=== PATIENT | female | born 1940 | race Caucasian/White ===

== ENCOUNTER 2019-04-15 11:30 | Inpatient (IN) | payer MEDICARE, BC ==
[~2019-04-15] VITALS: Ht 165.1 cm; Wt 93.2 kg
--- NOTE | 2019-04-15 02:30 | NUR ---
PATIENTS TEMPERATURE STILL ELEVATE AT 102, PROVIDED PATIENT WITH ICE PACKS TO COOL DOWN. TYLENOL WAS ALREADY ADMINISTERED, WILL RECHECK TEMPERATURE AND CLOSELY MONITOR. Addendum: 04/16/19 at 0543 by Conor Baxter RN NOTE WAS TAKEN AT 2030 NOT 3003
--- OUTSIDE RECORDS SUMMARY | 2019-04-15 11:34 | XMS REPORT | Clinical Summary ---
Author Author [facility]SHLI [facility] Address Unknown Phone Unavailable Care Team Providers Care Home Service Consultant Name Role Phone Jackson Mccarthy PCP Allergies Comments Active Allergy Reactions Severity Noted Date Meperidine Itching, Rash Low 04/14/2018 Digitalis Glycosides Itching, Rash Low 05/21/2018 Phenobarbital Itching, Rash Low 05/21/2018 Medications End Date Status Medication Sig Dispensed Refills Start Date Active calcium carbonate Take 600 mg 0 (OS-RYAN) 600 mg calcium by mouth (1,500 mg) Tab daily. Active cholecalciferol, vitamin Take 50,000 0 D3, 50,000 unit Tab Units by mouth once a week. Active levocetirizine (XYZAL) 5 Take 5 mg by 0 MG tablet mouth every evening. Active gabapentin (NEURONTIN) Take 600 mg 0 600 MG tablet by mouth 2 (two) times daily 600 mg in AM 1200 mg in PM . Active losartan-hydroCHLOROthiaz Take 1 tablet 0 eliceo (HYZAAR) 50-12.5 mg by mouth per tablet daily. Active omeprazole (PRILOSEC) 10 Take 10 mg by 0 MG capsule mouth daily. Active pravastatin (PRAVACHOL) Take 40 mg by 0 40 MG tablet mouth nightly. Active thiamine HCl (VITAMIN B-1 Take by mouth 0 ORAL) daily. Active ascorbate calcium Take by mouth 0 (VITAMIN C ORAL) daily. Active vitamin E, dl,tocopheryl Take by 0 acet, (VITAMIN E, DL, mouth. ACETATE, ORAL) 04/18/2019 Active ferrous sulfate 325 (65 Take 1 tablet 650 tablet 0 FE) MG tablet (325 mg 8 total) by mouth 2 (two) times daily before meals for 325 days. 05/27/2018 Discontinued inFLIXimab (REMICADE) 100 Inject 0 mg injection intravenously once every 6 weeks. 05/27/2018 Discontinued acetaminophen (TYLENOL) Take 500 mg 0 500 MG tablet by mouth every 6 (six) hours as needed for Pain. 06/12/2018 HYDROcodone-acetaminophen Take 1 tablet 60 tablet 0 (NORCO 10-325) 10-325 mg by mouth 8 per tablet every 4 (four) hours as needed for Pain for up to 15 days. Max Daily Amount: 6 tablets Active Problems Problem Noted Date Glenohumeral arthritis, right 05/26/2018 Encounters Care Team Description Date Type Specialty Brennon Starkey Jr., MD ARTHROPLASTY,SHOULDER 05/26/2018 Surgery Mery Weathers, DRE 05/26/2018 Anesthesia Event Brennon Starkey Jr., MD 05/26/2018 Hospital General Internal Medicine - Encounter 05/28/2018 Brennon Starkey Jr., MD 05/21/2018 Hospital Pre-Admission Testing Encounter Brennon Starkey Jr., MD 05/21/2018 Hospital Pre-Admission Testing Encounter after 04/14/2018 Social History Date Tobacco Use Types Packs/Day Years Used Never Smoker Smokeless Tobacco: Never Used Alcohol Use Drinks/Week oz/Week Comments Yes rare Sex Assigned at Date Recorded Not on file Industry Job Start Date Occupation Not on file Not on file Not on file Travel End Travel History Travel Start No recent travel history available. Last Filed Vital Signs Time Taken Vital Sign Reading 05/28/2018 5:35 PM CDT Blood Pressure 140/64 05/28/2018 5:35 PM CDT Pulse 85 05/28/2018 5:35 PM CDT Temperature 36.9 C (98.4 F) 05/28/2018 5:35 PM CDT Respiratory Rate 18 05/28/2018 5:35 PM CDT Oxygen Saturation 96% - Inhaled Oxygen - Concentration 05/26/2018 5:55 PM CDT Weight 87.5 kg (193 lb) 05/26/2018 5:55 PM CDT Height 167.6 cm (5' 6") 05/26/2018 5:55 PM CDT Body Mass Index 31.15 Plan of Treatment Not on file Implants Device Identifier Shelf Expiration Date Model / Serial / Lot Implanted Type Area Manufactur er 07/10/2019 6194-1-001 / / [id number] [id number] Bone Smplx Hv 6194-1-001 - Cement/Richard Right: Shoulder TATY:ST [id number] ler/Adhesi PAUL Implanted: Qty: 1 on 05/26/2018 by Brennon Evans Jr., MD 06/09/2021 AR-9106-02 / / [id number] Arthrex [employer] [place] Glenoid Joints Right: Shoulder ARTHREX Implanted: Qty: 1 on 05/26/2018 by Brennon Starkey Jr., MD 02/07/2023 AR-[id number] / / [id number] [employer] [place] Humeral Stem Joints Right: Shoulder ARTHREX 10mm Implanted: Qty: 1 on 05/26/2018 by Brennon Starkey Jr., MD 09/09/2022 [id number] / / [id number] Head Hum 48 Mm X 19 Mm [id number]-[id number] Joints Right: Shoulder ARTHREX - [id number] Implanted: Qty: 1 on 05/26/2018 by Brennon Starkey Jr., MD Procedures Comments Procedure Name Priority Date/Time Associated Diagnosis TRANSFUSION SERVICE 05/30/2018 REPORT - SCAN 5:50 PM CDT PREPARE LEUKO-REDUCED RBC Routine 05/29/2018 11:54 PM CDT TRANSFUSION SERVICE 05/29/2018 REPORT - SCAN 5:51 PM CDT RHYTHM STRIP - SCAN 05/29/2018 1:30 PM CDT TRANSFUSE LEUKO-REDUCED Routine 05/28/2018 RED BLOOD CELLS 6:13 PM CDT TRANSFUSE LEUKO-REDUCED Routine 05/28/2018 RED BLOOD CELLS 2:02 PM CDT BASIC METABOLIC PANEL (7) STAT 05/28/2018 3:46 AM CDT HEMOGLOBIN AND HEMATOCRIT STAT 05/28/2018 3:46 AM CDT BASIC METABOLIC PANEL (7) STAT 05/27/2018 9:27 AM CDT HEMOGLOBIN AND HEMATOCRIT STAT 05/27/2018 9:27 AM CDT XR SHOULDER RIGHT Routine 05/26/2018 COMPLETE MIN 2 VWS 1:27 PM CDT HGB/HCT (H&H) - STAT LAB STAT 05/26/2018 10:32 AM CDT GLUCOSE-STAT LAB STAT 05/26/2018 10:32 AM CDT POTASSIUM-STAT LAB STAT 05/26/2018 10:32 AM CDT SODIUM NA-STAT LAB STAT 05/26/2018 10:32 AM CDT BLOOD GAS, ARTERIAL STAT 05/26/2018 10:32 AM CDT CALCIUM, IONIZED STAT 05/26/2018 10:32 AM CDT RRL CRITICAL LABS STAT 05/26/2018 (ABG,NA,K,H&H,GLUCOSE) 10:32 AM CDT TISSUE EXAM AP Routine 05/26/2018 10:06 AM CDT ANESTHESIA PERIPHERAL Routine 05/26/2018 BLOCK 9:02 AM CDT ARTHROPLASTY,SHOULDER 05/26/2018 Localized osteoarthritis 8:00 AM CDT of right shoulder Special Needs (GENERAL ANESTHESIA WITH ONE SHOT BLOCK, ARTHREX, APEX TOTAL SHOULDER SYSTEM) TRANSFUSION SERVICE 05/22/2018 REPORT - SCAN 5:54 PM CDT TYPE AND SCREEN, Routine 05/21/2018 AUTOMATED 10:07 AM CDT after 04/14/2018 Results * TRANSFUSION SERVICE REPORT - SCAN (05/30/2018 5:50 PM CDT) Only the most recent of 3 results within the time period is included. Narrative Performed At * Prepare Leuko-Red RBC (05/29/2018 11:54 PM CDT) CROSSMATCH COMPATIBLE SAFETRACE TX Unit ABO A Pos SAFETRACE TX UNIT NUMBER [id number] SAFETRACE TX Status TRANSFUSED SAFETRACE TX Blood Bank Product RED BLOOD CELLS SAFETRACE TX PRODUCT CODE [id number] SAFETRACE TX CROSSMATCH COMPATIBLE SAFETRACE TX Unit ABO A Pos SAFETRACE TX UNIT NUMBER [id number] SAFETRACE TX Status TRANSFUSED SAFETRACE TX Blood Bank Product RED BLOOD CELLS SAFETRACE TX PRODUCT CODE [id number] SAFETRACE TX Specimen Other Performing Organization Address City/[facility]/Zipcode Phone Number [place] * RHYTHM STRIP - SCAN (05/29/2018 1:30 PM CDT) Narrative Performed At * Transfuse Leuko-Red RBC (05/28/2018 6:13 PM CDT) Only the most recent of 3 results within the time period is included. * Hemoglobin and hematocrit (05/28/2018 3:46 AM CDT) Only the most recent of 2 results within the time period is included. Hemoglobin 7.2 (L) 11.2 - 15.7 GM/DL [facility] Hematocrit 22.7 (L) 34.1 - 44.9 % [facility] Specimen Blood Performing Organization Address City/[facility]/Zipcode Phone Number [place] [phone] [place] [address] [facility] * Basic Metabolic Panel (05/28/2018 3:46 AM CDT) Only the most recent of 2 results within the time period is included. Sodium 135 (L) 136 - 145 meq/L [facility] Potassium 4.3 3.5 - 5.1 meq/L [facility] Chloride 105 98 - 107 meq/L [facility] CO2 20 (L) 22 - 29 meq/L [facility] BUN 30 (H) 7 - 21 mg/dL [facility] Creatinine 1.31 (H) 0.57 - 1.25 mg/dL [facility] Glucose 130 (H) 70 - 105 mg/dL [facility] Calcium 8.8 8.4 - 10.2 mg/dL [facility] EGFR 39Comment: ESTIMATED GFR IS mL/min/1.73 sq m [facility] NOT ACCURATE CREATININE [facility] CLEARANCE IN PREDICTING GLOMERULAR FILTRATION RATE. ESTIMATED GFR IS NOT APPLICABLE FOR DIALYSIS PATIENTS. Specimen Blood Performing Organization Address City/[facility]/Zipcode Phone Number [facility] [address] [place] [address] [facility] * XR shoulder complete 2 views min right (05/26/2018 1:27 PM CDT) Specimen Narrative Performed At FINAL REPORT RIS TECHNIQUE: Three views of the right shoulder dated 05/26/2018 HISTORY: Status post right shoulder arthroplasty COMPARISON: None. IMPRESSION: Patient is status post total right shoulder arthroplasty with full surgical fluid and air seen in the soft tissues. No fracture or dislocation. Bones are osteopenic.. Minimal atelectasis is seen in the right lung base. Signed: Ervin Tijerina MD Report Verified Date/Time:05/26/2018 13:59:31 Reading Location: [facility] Radiology Reading Room Procedure Note Interface, External Ris In - 05/26/2018 2:01 PM CDT FINAL REPORT TECHNIQUE: Three views of the right shoulder dated 05/26/2018 HISTORY: Status post right shoulder arthroplasty COMPARISON: None. IMPRESSION: Patient is status post total right shoulder arthroplasty with full surgical fluid and air seen in the soft tissues. No fracture or dislocation. Bones are osteopenic.. Minimal atelectasis is seen in the right lung base. Signed: Ervin Tijerina MD Report Verified Date/Time: 05/26/2018 13:59:31 Reading Location: [facility] Radiology Reading Room Performing Organization Address City/State/Zipcode Phone Number [facility] * Potassium-Stat Lab (05/26/2018 10:32 AM CDT) Potassium 4.0 3.6 - 5.5 meq/L [facility] Specimen Blood, Arterial Narrative Performed At FiO2: 70%, Temp: 35.6C [facility] FiO2: 70%, Temp: 35.6C [facility] FiO2: 70%, Temp: 35.6C FiO2: 70%, Temp: 35.6C FiO2: 70%, Temp: 35.6C Performing Organization Address [facility] Phone Number [address] * Sodium Na-Stat Lab (05/26/2018 10:32 AM CDT) Sodium 136 135 - 148 meq/L [facility] Specimen Blood, Arterial Narrative Performed At FiO2: 70%, Temp: 35.6C [facility] FiO2: 70%, Temp: 35.6C [facility] FiO2: 70%, Temp: 35.6C FiO2: 70%, Temp: 35.6C FiO2: 70%, Temp: 35.6C Performing Organization Address [facility] Number [address] * Glucose-Stat Lab (05/26/2018 10:32 AM CDT) Glucose 128 (H) 70 - 110 mg/dL [facility] Specimen Blood, Arterial Narrative Performed At FiO2: 70%, Temp: 35.6C [facility] FiO2: 70%, Temp: 35.6C [facility] FiO2: 70%, Temp: 35.6C FiO2: 70%, Temp: 35.6C FiO2: 70%, Temp: 35.6C Performing Organization Address [facility] Phone Number [address] * HGB/HCT (H&H)-Stat Lab (05/26/2018 10:32 AM CDT) Hemoglobin 9.7 (L) 12.0 - 15.0 g/dL [facility] Hematocrit 29.0 (L) 36.0 - 45.0 % [facility] Specimen Blood, Arterial Narrative Performed At FiO2: 70%, Temp: 35.6C [facility] FiO2: 70%, Temp: 35.6C [facility] FiO2: 70%, Temp: 35.6C FiO2: 70%, Temp: 35.6C FiO2: 70%, Temp: 35.6C Performing Organization Address [facility] Phone Number [address] * Calcium, Ionized (05/26/2018 10:32 AM CDT) Calcium, Ion 1.06 (L) 1.12 - 1.27 mmol/L [facility] pH, Blood 7.37 [facility] Specimen Blood Narrative Performed At FiO2: 70%, Temp: 35.6C [facility] Performing Organization Address [facility] Phone Number [address] * Blood gas, arterial (05/26/2018 10:32 AM CDT) pH, Arterial 7.37 7.35 - 7.45 [facility] pCO2, Arterial 41 35 - 45 mmHg [facility] pO2, Arterial 296 (H) 80 - 90 mmHg [facility] O2 Sat, Arterial 99.7 (H) 96.0 - 97.0 % [facility] HCO3, Arterial 23 21 - 29 mmol/L [facility] Base Excess, Arterial -2.3 (L) -2.0 - 3.0 mmol/L [facility] Patient Temperature 37.0 C [facility] FIO2 21.0 % [facility] Specimen Blood, Arterial Narrative Performed At FiO2: 70%, Temp: 35.6C [facility] FiO2: 70%, Temp: 35.6C [facility] FiO2: 70%, Temp: 35.6C FiO2: 70%, Temp: 35.6C FiO2: 70%, Temp: 35.6C Performing Organization Address [facility]/Zipcode Phone Number [facility] [address] [place], [place] [phone] [facility] * Tissue Exam (05/26/2018 10:06 AM CDT) Case Report Surgical Pathology [facility] Report [facility] Case: [id number] Authorizing Provider:Brennon Starkey MD Collected: 05/26/2018 1006 Ordering Location: [facility] PERIOPERATIVE Received: 05/26/2018 1259 SERVICES Pathologist: Cristo Lawler MD Specimen:Humeral head, right shoulder DIAGNOSIS BONE, RIGHT SHOULDER, [facility] ARTHROPLASTY: [facility] -OSTEOARTHRITIS Signing Pathologist Direct Phone Line: [phone] CPT Code(s) 19287 [facility] [address] [facility] CLINICAL HISTORY Localized osteoarthritis right [facility] shoulder [facility] SPECIMEN SOURCE Right humeral head [facility] GROSS DESCRIPTION Received fresh labeled [facility] "humeral head, right shoulder" [facility] is a a 4.5 x 4.0 x 0.5 cm humeral head. The articular surface is joyner-white to yellow and displays focal areas of pitting and eburnation with obliteration of the demarcation between cortical and cancellous bone in these areas on cross section. No soft tissue is identified. Waist Pleater sections are submitted in cassettes [id number] for decalcification. DB/pl MICROSCOPIC DESCRIPTION The sections show [facility] reduplication of the tidemark [facility] with eburnation and osteophyte formation. Specimen Tissue - Humeral head, right shoulder Performing Organization Address City/[facility]/Zipcode Phone Number [facility] [address] [place] [address] [facility] * ANESTHESIA PERIPHERAL BLOCK (05/26/2018 9:02 AM CDT) Narrative Performed At Maxine Serra CRNA 05/26/20189:02 AM Peripheral Block Patient location during procedure: pre-op Start time: 05/26/2018 7:14 AM End time: 05/26/2018 7:25 AM Reason for block: procedure for pain, at surgeon's request and post-op pain management Staffing Anesthesiologist: ABELINO WARE Resident/POLL WATCHER: EDD ARCHULETA Performed by: resident/POLL WATCHER Preanesthetic Checklist Completed: patient identified, site marked, surgical consent, pre-op evaluation, timeout performed, IV checked, risks and benefits discussed and monitors and equipment checked Peripheral Block Patient position: supine (bump under right shoulder) Prep: ChloraPrep Patient monitoring: heart rate, logistics research engineer and continuous pulse ox Block type: Interscalene Laterality: right Injection technique: single-shot Procedures: ultrasound guided and landmark technique Local infiltration: ropivicaine Infiltration strength: 0.35 % Dose: 15 mL Needle Needle type: Pajunk. Needle gauge: 21 G Needle length: 100 mm Assessment Injection assessment: negative aspiration for heme, no paresthesia on injection, incremental injection and local visualized surrounding nerve on ultrasound Paresthesia pain: none Heart rate change: no Slow fractionated injection: yes Additional Notes Time out performed and procedural site identified and marked. Neural structures were identified with ultrasound. After injection of topical local anesthetic, Pajunk needle advanced and positioned under ultrasound guidance. After negative aspiration, local anesthetic visualized surrounding nerve on ultrasound. Catheter was advanced without complications. Catheter taped and secured to skin. No acute complications. Patient tolerated well - sedated but cooperative. No pain on injection or throughout procedure. Dr Ware present throughout. Edd Archuleta Anesthesiology - PGY4 [facility] Procedure Note Maxine Serra CRNA - 05/26/2018 7:29 AM CDT Peripheral Block Patient location during procedure: pre-op Start time: 05/26/2018 7:14 AM End time: 05/26/2018 7:25 AM Reason for block: procedure for pain, at surgeon's request and post-op pain management Staffing Anesthesiologist: ABELINO WARE Resident/POLL WATCHER: EDD ARCHULETA Performed by: resident/POLL WATCHER Preanesthetic Checklist Completed: patient identified, site marked, surgical consent, pre-op evaluation, timeout performed, IV checked, risks and benefits discussed and monitors and equipment checked Peripheral Block Patient position: supine (bump under right shoulder) Prep: ChloraPrep Patient monitoring: heart rate, logistics research engineer and continuous pulse ox Block type: Interscalene Laterality: right Injection technique: single-shot Procedures: ultrasound guided and landmark technique Local infiltration: ropivicaine Infiltration strength: 0.35 % Dose: 15 mL Needle Needle type: Pajunk. Needle gauge: 21 G Needle length: 100 mm Assessment Injection assessment: negative aspiration for heme, no paresthesia on injection, incremental injection and local visualized surrounding nerve on ultrasound Paresthesia pain: none Heart rate change: no Slow fractionated injection: yes Additional Notes Time out performed and procedural site identified and marked. Neural structures were identified with ultrasound. After injection of topical local anesthetic, Pajunk needle advanced and positioned under ultrasound guidance. After negative aspiration, local anesthetic visualized surrounding nerve on ultrasound. Catheter was advanced without complications. Catheter taped and secured to skin. No acute complications. Patient tolerated well - sedated but cooperative. No pain on injection or throughout procedure. Dr Ware present throughout. Edd Archuleta Anesthesiology - PGY4 [facility] * Type and screen, automated (05/21/2018 10:07 AM CDT) ABO/RH AUTOMATED (BEAKER) A POSITIVE [facility] Ab Scrn NEGATIVE [facility] Specimen Blood Performing Organization Address City/State/Zipcode Phone Number [facility] [address] [place] [address] MEDICAL DIANA after 04/14/2018 Insurance Payer Benefit Subscriber ID Type Phone Address Plan / Group MEDICARE MEDICARE A xxxxxxxxxx Medicare B BLUE CROSS/BLUE SHIELD BCBS xxxxxxxxxxxxxxx PPO [phone] [address] [place] [address] [place] Advance Directives For more information, please contact: [facility] [address] [place], [place] [phone] Date Inactivated Comments Code Status Date Activated 05/28/2018 8:59 PM Full Code 05/26/2018 5:50 PM This code status was determined by: Patient 05/26/2018 5:49 PM Full Code 05/26/2018 5:02 AM This code status was determined by: Patient
--- OUTSIDE RECORDS SUMMARY | 2019-04-15 11:35 | XMS REPORT ---
Author Author [facility] Address Unknown Phone Unavailable Care Team Providers Care Radar Tester Name Role Phone JANEE EWING Unavailable Unavailable Problems This patient has no known problems. Allergies, Adverse Reactions, Alerts This patient has no known allergies or adverse reactions. Medications This patient has no known medications. Results Test Description Test Time Test Comments Text Results Atomic Results Result Comments TISSUE EXAM 2018-06-05 10:50:00 Surgical Pathology Report Case: [id number] Authorizing Provider: Brennon Ewing MD Collected: 05/26/2018 1006 Ord ering Location: [facility] PERIOPERATIVE Received: 05/26/2018 1259 SERVICES Pathologist: Cristo Lawler MD Specimen: Humeral head, right shoulder BONE, RIGHT SHOULDER, ARTHROPLASTY: -OSTEOARTHRITIS Signing Pathologist Direct Phone Line: [phone] signed by Cristo Lawler MD on 06/05/2018 at 10:50 [id number] osteoarthritis right shoulderRight humeral headReceived fresh labeled "humeral head, right shoulder" is a a 4.5 x 4.0 x 0.5 cm humeral head. The articular surface is joyner-white to yellow and displays focal areas of pitting and eburnation with obliteration of the demarcation between cortical and cancellous bone in these areas on cross section. No soft tissue is identified. Hand Bander sections are submitted in cassettes A1-A2 for decalcification. DB/pl The sections show reduplication of the tidemark with eburnation and osteophyte formation. BASIC METABOLIC PANEL 2018-05-28 04:52:00 SODIUM (BEAKER) (test xqcl=065) 135 meq/L 136-145 POTASSIUM (BEAKER) (test xudi=598) 4.3 meq/L 3.5-5.1 CHLORIDE (BEAKER) (test jgpy=990) 105 meq/L 98-107 CO2 (BEAKER) (test vxhc=321) 20 meq/L 22-29 BLOOD UREA NITROGEN (BEAKER) (test ncem=151) 30 mg/dL 7-21 CREATININE (BEAKER) (test sijt=895) 1.31 mg/dL 0.57-1.25 GLUCOSE RANDOM (BEAKER) (test ehtf=801) 130 mg/dL 70-105 CALCIUM (BEAKER) (test nliy=458) 8.8 mg/dL 8.4-10.2 EGFR (BEAKER) (test moke=6546) 39 mL/min/1.73 sq m ESTIMATED GFR IS NOT ACCURATE CREATININE CLEARANCE IN PREDICTING GLOMERULAR FILTRATION RATE. ESTIMATED GFR IS NOT APPLICABLE FOR DIALYSIS PATIENTS. HEMOGLOBIN AND [id number] 04:30:00* Test Item Value Reference Range Comments HEMOGLOBIN (BEAKER) (test xfyb=517) 7.2 GM/DL 11.2-15.7 HEMATOCRIT (BEAKER) (test udea=975) 22.7 % 34.1-44.9 BASIC METABOLIC [id number] 10:00:00* Test Item Value Reference Range Comments SODIUM (BEAKER) (test mcdj=569) 135 meq/L 136-145 POTASSIUM (BEAKER) (test zzlf=253) 4.5 meq/L 3.5-5.1 CHLORIDE (BEAKER) (test rqwf=772) 104 meq/L 98-107 CO2 (BEAKER) (test knew=923) 20 meq/L 22-29 BLOOD UREA NITROGEN (BEAKER) (test szko=900) 28 mg/dL 7-21 CREATININE (BEAKER) (test upgs=100) 1.55 mg/dL 0.57-1.25 GLUCOSE RANDOM (BEAKER) (test oiyt=186) 129 mg/dL 70-105 CALCIUM (BEAKER) (test rghh=660) 8.8 mg/dL 8.4-10.2 EGFR (BEAKER) (test wuuw=1911) 32 mL/min/1.73 sq m ESTIMATED GFR IS NOT ACCURATE CREATININE CLEARANCE IN PREDICTING GLOMERULAR FILTRATION RATE. ESTIMATED GFR IS NOT APPLICABLE FOR DIALYSIS PATIENTS. HEMOGLOBIN AND [id number] 09:35:00* Test Item Value Reference Range Comments HEMOGLOBIN (BEAKER) (test ylqa=732) 8.3 GM/DL 11.2-15.7 HEMATOCRIT (BEAKER) (test ogax=201) 26.3 % 34.1-44.9 RAD, SHOULDER, COMPLETE (MIN 2 VIEWS), [id number] 13:59:00True AP of joint. 15 degrees off center towards midline to get maximum joint space view.Reason for exam:->s/p right total shoulder arthroplastyFINAL REPORT TECHNIQUE: Three views of the right shoulder dated 05/26/2018 HISTORY: Status post right shoulder arthroplasty COMPARISON: None. IMPRESSION:Patient is status post total right shoulder arthroplasty with full surgical fluid and air seen in the soft tissues. No fracture or dislocation. Bones are osteopenic.. Minimal atelectasis is seen in the right lung base. Signed: Dea Michael MDReport Verified Date/Time: 05/26/2018 13:59:31 Reading Location: [facility] Radiology Reading Room D GAS, [id number] 10:51:00* Test Item Value Reference Range Comments PH ARTERIAL (BEAKER) (test acvd=711) 7.37 7.35-7.45 PCO2 ARTERIAL (BEAKER) (test arjq=208) 41 mmHg 35-45 PO2 ARTERIAL (BEAKER) (test meev=293) 296 mmHg 80-90 O2 SATURATION ARTERIAL (BEAKER) (test uvky=297) 99.7 % 96.0-97.0 HCO3 ARTERIAL (BEAKER) (test ihvn=390) 23 mmol/L 21-29 BASE EXCESS ARTERIAL (BEAKER) (test usuw=680) -2.3 mmol/L -2.0-3.0 PATIENT TEMPERATURE (BEAKER) (test bemy=6159) 37.0 C FIO2 (BEAKER) (test icvz=1822) 21.0 % FiO2: 70%, Temp: 35.6CFiO2: 70%, Temp: 35.6CFiO2: 70%, Temp: 35.6CFiO2: 70%, Tem p: 35.6CFiO2: 70%, Temp: 35.6CGLUCOSE-STAT [id number] 10:51:00* Test Item Value Reference Range Comments GLUCOSE RANDOM (BEAKER) (test qkhh=526) 128 mg/dL 70-110 FiO2: 70%, Temp: 35.6CFiO2: 70%, Temp: 35.6CFiO2: 70%, Temp: 35.6CFiO2: 70%, Tem p: 35.6CFiO2: 70%, Temp: 35.6CHGB/HCT (H&H) - STAT [id number] 10:51:00* Test Item Value Reference Range Comments HEMOGLOBIN (BEAKER) (test viej=113) 9.7 g/dL 12.0-15.0 HEMATOCRIT (BEAKER) (test xdnq=515) 29.0 % 36.0-45.0 FiO2: 70%, Temp: 35.6CFiO2: 70%, Temp: 35.6CFiO2: 70%, Temp: 35.6CFiO2: 70%, Tem p: 35.6CFiO2: 70%, Temp: 35.6CCALCIUM, [id number] 10:51:00* Test Item Value Reference Range Comments CALCIUM IONIZED (BEAKER) (test nmue=800) 1.06 mmol/L 1.12-1.27 PH, BLOOD (BEAKER) (test ytwi=3120) 7.37 FiO2: 70%, Temp: 35.6CSODIUM NA-STAT [id number] 10:50:00* Test Item Value Reference Range Comments SODIUM (BEAKER) (test dfwq=913) 136 meq/L 135-148 FiO2: 70%, Temp: 35.6CFiO2: 70%, Temp: 35.6CFiO2: 70%, Temp: 35.6CFiO2: 70%, Tem p: 35.6CFiO2: 70%, Temp: 35.6CPOTASSIUM-STAT [id number] 10:50:00* Test Item Value Reference Range Comments POTASSIUM (BEAKER) (test tcer=743) 4.0 meq/L 3.6-5.5 FiO2: 70%, Temp: 35.6CFiO2: 70%, Temp: 35.6CFiO2: 70%, Temp: 35.6CFiO2: 70%, Tem p: 35.6CFiO2: 70%, Temp: 35.6C
[2019-04-15] MEDS ORDERED: ACETAMINOPHEN 325 MG TAB PO ONE (11:45)
[2019-04-15] MEDS ORDERED: ASPIRIN 81 MG CHEW TAB PO ONE (11:45)
[2019-04-15 12:23] LABS: BASOPHILS % 0.1 % (0.0-1.0); EOSINOPHILS % 0.1 % (0.0-6.0); HEMATOCRIT 30.1 % (34.2-44.1); HEMOGLOBIN 9.9 g/dL (12.0-16.0); LYMPHOCYTES # (AUTO) 0.8 (1.0-3.2); LYMPHOCYTES % 5.8 % (18.0-39.1); MEAN CORPUSCULAR HEMOGLOBIN 32.6 pg (28-32); MEAN CORPUSCULAR HGB CONC 32.9 g/dL (31-35); MONOCYTES # (AUTO) 1.9 (0.2-0.8); MONOCYTES % 13.7 % (4.4-11.3); NEUTROPHILS % 78.4 % (38.7-80.0); PLATELET COUNT 191 x10e3/uL (140-360); RED BLOOD COUNT 3.04 x10e6/uL (3.6-5.1); RED CELL DISTRIBUTION WIDTH 13.4 % (11.7-14.4)
[2019-04-15 12:33] LABS: BILIRUBIN,URINE NEGATIVE (NEGATIVE); CLARITY,URINE CLEAR (CLEAR); COLOR,URINE YELLOW (YELLOW); KETONES,URINE NEGATIVE (NEGATIVE); LEUKOCYTE ESTERASE ,URINE MODERATE (NEGATIVE); NITRITE,URINE NEGATIVE (NEGATIVE); PROTEIN,URINE DIPSTICK TRACE (NEGATIVE); URINE UROBILINOGEN 0.2 mg/dL (0.2 - 1)
[2019-04-15 12:37] LABS: INR 0.97; PROTHROMBIN TIME 13.4 seconds (11.9-14.5)
[2019-04-15 12:38] LABS: PARTIAL THROMBOPLASTIN TIME 32.6 seconds (23.8-35.5)
--- NOTE | 2019-04-15 12:42 | Diagnostic Imaging Report ---
EXAMINATION: CHEST 2 VIEWS INDICATION: Shortness of breath, chest tightness. COMPARISON: None FINDINGS: TUBES and LINES: None. LUNGS: Lungs are well inflated. There is no evidence of pneumonia or pulmonary edema. Patchy opacity at the lung bases, likely atelectasis. PLEURA: No pleural effusion or pneumothorax. HEART AND MEDIASTINUM: The cardiomediastinal silhouette is unremarkable. There are atherosclerotic calcifications within the aorta. BONES AND SOFT TISSUES: No acute osseous abnormality. Partially seen cervical spine fixation hardware and right shoulder hemiarthroplasty. UPPER ABDOMEN: No free air under the diaphragm. IMPRESSION: No acute radiographic abnormality. Signed by: Dr. Kenney Stephen MD on 04/15/2019 12:39 PM
[2019-04-15 12:44] LABS: ALBUMIN 3.4 g/dL (3.5-5.0); ALBUMIN/GLOBULIN RATIO 0.9 (0.8-2.0); ANION GAP 13.9 mmol/L (8-16); CALCIUM 9.1 mg/dL (8.4-10.2); CREATININE, SERUM 1.39 mg/dL (0.57-1.11); POTASSIUM 3.9 mmol/L (3.5-5.1)
[2019-04-15 12:48] LABS: B-TYPE NATRIURETIC PEPTIDE2 66.4 pg/mL (0-100)
[2019-04-15 12:53] LABS: CREATINE KINASE MB 1.3 ng/mL (0-5.0)
[2019-04-15] MEDS: SODIUM CHLORIDE 0.9% 1000ML 1,000 ML IV SCH ×2 (12:53→14:34)
[2019-04-15 12:59] LABS: BACTERIA,URINE RARE /HPF; EPITHELIAL CELLS,URINE FEW /LPF; RBC,URINE 0-5 /HPF (0-5)
--- NOTE | 2019-04-15 13:36 | NUR ---
BEDSIDE REPORT TO ALCIDES Cummings
--- OUTSIDE RECORDS SUMMARY | 2019-04-15 13:42 | XMS REPORT | Clinical Summary ---
Author Author [facility] Address Unknown Phone Unavailable Care Team Providers Care Snaker Driving Horses Name Role Phone Jackson Mccarthy PCP Allergies [...] Area Manufactur er 07/10/2019 6194-1-001 / / [id number] Cement Bone Smplx Hv 6194-1-001 - Cement/Richard Right: Shoulder TATY:ST [id number] ler/Adhesi PAUL Implanted: Qty: 1 on 05/26/2018 by Brennon Evans Jr., MD 06/09/2021 AR-9106-02 / / [id number] [employer] [place] Glenoid Joints Right: Shoulder ARTHREX Implanted: Qty: 1 on 05/26/2018 by Brennon Starkey Jr., MD 02/07/2023 AR-9100-10S / / [id number] [employer] [place] Humeral Stem Joints Right: Shoulder ARTHREX 10mm Implanted: Qty: 1 on 05/26/2018 by Brennon Starkey Jr., MD 09/09/2022 AR-9148-19P / / [id number] Head Hum 48 Mm X 19 Mm Ar-9148-19p Joints Right: Shoulder ARTHREX - [id number] Implanted: Qty: 1 on 05/26/2018 by Brennon [...] ABO A Pos SAFETRACE TX UNIT NUMBER [id number] SAFETRACE TX Status TRANSFUSED SAFETRACE TX Blood Bank Product RED BLOOD CELLS SAFETRACE TX PRODUCT CODE [id number] SAFETRACE TX CROSSMATCH COMPATIBLE SAFETRACE TX Unit ABO A Pos SAFETRACE TX UNIT NUMBER [id number] SAFETRACE TX Status TRANSFUSED SAFETRACE TX Blood Bank Product RED BLOOD CELLS SAFETRACE TX PRODUCT CODE [id number] SAFETRACE TX Specimen Other Performing Organization Address City/[facility]/Zipcode Phone Number SAFETRACE [place] * RHYTHM STRIP [...] Hemoglobin 7.2 (L) 11.2 - 15.7 GM/DL [facility] Hematocrit 22.7 (L) 34.1 - 44.9 % [facility] Specimen Blood Performing Organization Address City/[facility]/Zipcode Phone Number [place] [phone] [place] [address] MEDICAL CENTER * Basic Metabolic Panel (05/28/2018 3:46 AM CDT) Only the most recent of 2 results within the time period is included. Sodium 135 (L) 136 - 145 meq/L [facility] Potassium 4.3 3.5 - 5.1 meq/L [facility] Chloride 105 98 - 107 meq/L [facility] CO2 20 (L) 22 - 29 meq/L [facility] BUN 30 (H) 7 - 21 mg/dL [facility] Creatinine 1.31 (H) 0.57 - 1.25 mg/dL [facility] Glucose 130 (H) 70 - 105 mg/dL [facility] Calcium 8.8 8.4 - 10.2 mg/dL [facility] EGFR 39Comment: ESTIMATED GFR IS mL/min/1.73 sq m [facility] NOT ACCURATE CREATININE [facility] CLEARANCE IN PREDICTING GLOMERULAR FILTRATION RATE. ESTIMATED GFR IS NOT APPLICABLE FOR DIALYSIS PATIENTS. Specimen Blood Performing Organization Address City/[facility]/Zipcode Phone Number [facility] [address] [place] [address] MEDICAL CENTER * XR shoulder complete 2 [...] MD Report Verified Date/Time:05/26/2018 13:59:31 Reading Location: [facility] Radiology Reading Room Procedure Note Interface, External [...] Report Verified Date/Time: 05/26/2018 13:59:31 Reading Location: [facility] Radiology Reading Room Performing Organization Address City/State/Zipcode Phone Number [facility] * Potassium-Stat Lab (05/26/2018 10:32 AM CDT) Potassium 4.0 3.6 - 5.5 meq/L [facility] Specimen Blood, Arterial Narrative Performed At FiO2: 70%, Temp: 35.6C [facility] FiO2: 70%, Temp: 35.6C [facility] FiO2: 70%, Temp: 35.6C FiO2: 70%, Temp: 35.6C FiO2: 70%, Temp: 35.6C Performing Organization Address [facility] Phone Number [address] * Sodium Na-Stat Lab (05/26/2018 10:32 AM CDT) Sodium 136 135 - 148 meq/L [facility] Specimen Blood, Arterial Narrative Performed At FiO2: 70%, Temp: 35.6C [facility] FiO2: 70%, Temp: 35.6C [facility] FiO2: 70%, Temp: 35.6C FiO2: 70%, Temp: 35.6C FiO2: 70%, Temp: 35.6C Performing Organization Address [facility] Number [address] * Glucose-Stat Lab (05/26/2018 10:32 AM CDT) Glucose 128 (H) 70 - 110 mg/dL [facility] Specimen Blood, Arterial Narrative Performed At FiO2: 70%, Temp: 35.6C [facility] FiO2: 70%, Temp: 35.6C [facility] FiO2: 70%, Temp: 35.6C FiO2: 70%, Temp: 35.6C FiO2: 70%, Temp: 35.6C Performing Organization Address [facility] Phone Number [address] * HGB/HCT (H&H)-Stat Lab (05/26/2018 10:32 AM CDT) Hemoglobin 9.7 (L) 12.0 - 15.0 g/dL [facility] Hematocrit 29.0 (L) 36.0 - 45.0 % [facility] Specimen Blood, Arterial Narrative Performed At FiO2: 70%, Temp: 35.6C [facility] FiO2: 70%, Temp: 35.6C [facility] FiO2: 70%, Temp: 35.6C FiO2: 70%, Temp: 35.6C FiO2: 70%, Temp: 35.6C Performing Organization Address [email or web address] Phone Number [address] * Calcium, Ionized (05/26/2018 10:32 AM CDT) Calcium, Ion 1.06 (L) 1.12 - 1.27 mmol/L [facility] pH, Blood 7.37 [facility] Specimen Blood Narrative Performed At FiO2: 70%, Temp: 35.6C [facility] Performing Organization Address [facility] Phone Number [address] * Blood gas, arterial (05/26/2018 10:32 AM CDT) pH, Arterial 7.37 7.35 - 7.45 [facility] pCO2, Arterial 41 35 - 45 mmHg [facility] pO2, Arterial 296 (H) 80 - 90 mmHg [facility] O2 Sat, Arterial 99.7 (H) 96.0 - 97.0 % [facility] HCO3, Arterial 23 21 - 29 mmol/L [facility] Base Excess, Arterial -2.3 (L) -2.0 - 3.0 mmol/L [facility] Patient Temperature 37.0 C [facility] FIO2 21.0 % [facility] Specimen Blood, Arterial Narrative Performed At FiO2: 70%, Temp: 35.6C [facility] FiO2: 70%, Temp: 35.6C [facility] FiO2: 70%, Temp: 35.6C FiO2: 70%, Temp: 35.6C FiO2: 70%, Temp: 35.6C Performing Organization Address [facility]/Zipcode Phone Number [facility] [address] [place], [place] [id number] [facility] * Tissue Exam (05/26/2018 10:06 AM CDT) Case Report Surgical Pathology [facility] Report [facility] Case: [id number] Authorizing Provider:Brennon Starkey MD Collected: 05/26/2018 1006 Ordering Location: [facility] PERIOPERATIVE Received: 05/26/2018 1259 SERVICES Pathologist: Cristo Lawler MD Specimen:Humeral head, right shoulder DIAGNOSIS BONE, RIGHT SHOULDER, [facility] ARTHROPLASTY: [facility] -OSTEOARTHRITIS Signing Pathologist Direct Phone Line: [phone] CPT Code(s) 19251 [facility] [id number] [facility] CLINICAL HISTORY Localized osteoarthritis right [facility] shoulder [facility] SPECIMEN SOURCE Right humeral head [facility] GROSS DESCRIPTION Received fresh labeled [facility] "humeral head, right shoulder" [facility] is a a 4.5 x 4.0 x 0.5 cm humeral head. The articular surface is joyner-white to yellow and displays focal areas of pitting and eburnation with obliteration of the demarcation between cortical and cancellous bone in these areas on cross section. No soft tissue is identified. School Health Assistant sections are submitted in cassettes A1-A2 for decalcification. DB/pl MICROSCOPIC DESCRIPTION The sections show [facility] reduplication of the tidemark [facility] with eburnation and osteophyte formation. Specimen Tissue - Humeral head, right shoulder Performing Organization Address City/[facility]/Zipcode Phone Number [facility] [address] [place] [address] [facility] * ANESTHESIA PERIPHERAL BLOCK (05/26/2018 9:02 AM CDT) Narrative Performed At Maxine Serra CRNA 05/26/20189:02 AM Peripheral Block Patient location during procedure: pre-op Start time: 05/26/2018 7:14 AM End time: 05/26/2018 7:25 AM Reason for block: procedure for pain, at surgeon's request and post-op pain management Staffing Anesthesiologist: ABELINO WARE Resident/FIELD CROP FARMWORKER: EDD ARCHULETA Performed by: resident/FIELD CROP FARMWORKER Preanesthetic Checklist Completed: patient identified, site marked, surgical consent, pre-op evaluation, timeout performed, IV checked, risks and benefits discussed and monitors and equipment checked Peripheral Block Patient position: supine (bump under right shoulder) Prep: ChloraPrep Patient monitoring: heart rate, nuclear monitoring technician and continuous pulse ox Block type: Interscalene [...] present throughout. Edd Archuleta Anesthesiology - PGY4 [facility] Procedure Note Maxine Serra CRNA - 05/26/2018 7:29 AM CDT Peripheral Block Patient location during procedure: pre-op Start time: 05/26/2018 7:14 AM End time: 05/26/2018 7:25 AM Reason for block: procedure for pain, at surgeon's request and post-op pain management Staffing Anesthesiologist: ABELINO WARE Resident/FIELD CROP FARMWORKER: EDD ARCHULETA Performed by: resident/FIELD CROP FARMWORKER Preanesthetic Checklist Completed: patient identified, site marked, surgical consent, pre-op evaluation, timeout performed, IV checked, risks and benefits discussed and monitors and equipment checked Peripheral Block Patient position: supine (bump under right shoulder) Prep: ChloraPrep Patient monitoring: heart rate, nuclear monitoring technician and continuous pulse ox Block type: Interscalene [...] present throughout. Edd Archuleta Anesthesiology - PGY4 [facility] * Type and screen, automated (05/21/2018 10:07 AM CDT) ABO/RH AUTOMATED (BEAKER) A POSITIVE [facility] Ab Scrn NEGATIVE [facility] Specimen Blood Performing Organization Address City/State/Zipcode Phone Number [facility] [address] [place] [address] MEDICAL HARMONY after 04/14/2018 Insurance Payer Benefit Subscriber ID Type Phone Address Plan / Group MEDICARE MEDICARE A xxxxxxxxxx Medicare B BLUE CROSS/BLUE SHIELD BCBS xxxxxxxxxxxxxxx PPO [phone] [address] [place] [address] [place] Advance Directives For more information, please contact: [facility] [address] [place], [place] [phone] Date Inactivated Comments Code Status Date Activated 05/28/2018 8:59 PM Full Code 05/26/2018 5:50 PM This code status was determined by: Patient 05/26/2018 5:49 PM Full Code 05/26/2018 5:02 AM This code status was determined by: Patient
[2019-04-15] MEDS: CEFTRIAXONE SOD 1 GM/NS 50 ML 50 ML IV SCH (13:46)
[2019-04-15] MEDS ORDERED: LOSARTAN-HCTZ1 EACH PO (13:51)
[2019-04-15] MEDS ORDERED: REMICADE100 MG/VIA (13:51)
[2019-04-15] MEDS ORDERED: GABAPENTIN300 MG PO (13:51)
[2019-04-15] MEDS ORDERED: LEVOCETIRIZINE D5 MG PO (13:51)
[2019-04-15] MEDS ORDERED: OMEPRAZOLE10 MG PO (13:51)
[2019-04-15] MEDS ORDERED: PRAVASTATIN SOD40 MG PO (13:51)
[2019-04-15] MEDS ORDERED: VITAMIN C100 MG PO (13:54)
[2019-04-15] MEDS ORDERED: Calcium PO (13:54)
[2019-04-15] MEDS ORDERED: ACETAMINOPHEN325 M1 PO (13:54)
[2019-04-15] MEDS ORDERED: VITAMIN D250000 UNIT PO (13:54)
[2019-04-15] MEDS ORDERED: VITAMIN B-150 MG PO (13:54)
[2019-04-15] MEDS ORDERED: VITAMIN E400 UNI1 PO (13:54)
[2019-04-15] MEDS ORDERED: Magnesium PO (13:54)
[2019-04-15] MEDS: ACETAMINOPHEN 325 MG TAB PO PRN (18:30)
--- NOTE | 2019-04-15 18:30 | NUR ---
PATIENT RECEIVED FROM ER PER STRETCHER. ALERT AND VERBALLY RESPONSIVE. ASSISTED TO THE RESTROOM AND BACK TO BED. NOTED WITH ELEVATED TEMPERATURE, TYLENOL ADMINISTERED ORDERED. REQUESTED AND RECEIVED A CUP OF WATER. BED IN LOWER POSITION AND LOCKED. CALL LIGHT AT REACH, INSTRUCTED TO CALL FOR ASSISTANCE NEEDED. FAMILY AT BED SIDE.
[2019-04-15] MEDS ORDERED: HYDROCODONE/APAP 5MG-325MG TAB PO PRN (20:00)
[2019-04-15] MEDS ORDERED: ONDANSETRON HCL INJ 2MG/ML 2ML 2 MG/ML VIAL IV PRN (20:00)
[2019-04-15 20:39] VITALS: BP 150/67
[2019-04-15] MEDS ORDERED: NON-FORMULARY MEDICATION (Pravastatin Sodium 40 MG) PO SCH (21:00)
[2019-04-15 21:05] VITALS: BP 150/67
[2019-04-15] MEDS: MELATONIN 3 MG TAB PO SCH (21:05)
[2019-04-15] MEDS: PRAVASTATIN 20 MG TAB PO SCH (21:05)
[2019-04-15] MEDS: GABAPENTIN 300 MG CAP PO SCH (21:05)
--- NOTE | 2019-04-15 23:00 | NUR ---
PATIENT'S TEMPERATURE HAS COOLED DOWN TO 98.6. PATIENT STATES SHE IS FEELING MUCH BETTER NO CHILLS NOTED.
[2019-04-15 23:30] VITALS: BP 150/67
[2019-04-16] VITALS: BP 116/54
[2019-04-16] MEDS: ACETAMINOPHEN 325 MG TAB PO PRN ×3 (03:30→20:29)
[2019-04-16 04:00] VITALS: BP 120/56
[2019-04-16 05:36] LABS: BASOPHILS % 0.2 % (0.0-1.0); EOSINOPHILS % 0.1 % (0.0-6.0); HEMATOCRIT 26.4 % (34.2-44.1); HEMOGLOBIN 8.6 g/dL (12.0-16.0); LYMPHOCYTES # (AUTO) 0.8 (1.0-3.2); LYMPHOCYTES % 6.7 % (18.0-39.1); MEAN CORPUSCULAR HEMOGLOBIN 32.6 pg (28-32); MEAN CORPUSCULAR HGB CONC 32.6 g/dL (31-35); MONOCYTES # (AUTO) 1.6 (0.2-0.8); MONOCYTES % 13.4 % (4.4-11.3); NEUTROPHILS # (AUTO) 9.5 (2.1-6.9); PLATELET COUNT 170 x10e3/uL (140-360); RED BLOOD COUNT 2.64 x10e6/uL (3.6-5.1); RED CELL DISTRIBUTION WIDTH 13.4 % (11.7-14.4)
[2019-04-16 05:54] LABS: ALBUMIN 2.8 g/dL (3.5-5.0); ALBUMIN/GLOBULIN RATIO 0.9 (0.8-2.0); ANION GAP 11.3 mmol/L (8-16); CALCIUM 8.3 mg/dL (8.4-10.2); CREATININE, SERUM 1.15 mg/dL (0.57-1.11); POTASSIUM 4.3 mmol/L (3.5-5.1)
--- NOTE | 2019-04-16 07:30 | NUR ---
Pt received in bed. AOX4 and able to verbalize needs. Denies any pain at this time. Denies pain with voiding. Pt is afebrile at this time.
[2019-04-16 08:00] VITALS: BP_SYST 120; BP_SYST 129; BP_DIAS 56; BP_DIAS 61
[2019-04-16] MEDS: GABAPENTIN 300 MG CAP PO SCH ×2 (08:00→20:00)
[2019-04-16] MEDS: PANTOPRAZOLE SOD 40 MG TABEC PO SCH (08:45)
[2019-04-16] MEDS ORDERED: MAGNESIUM PO SCH (09:00)
[2019-04-16] MEDS: MAGNESIUM OXIDE 400 MG TAB PO SCH (09:00)
[2019-04-16] MEDS: HYDROCHLOROTHIAZIDE 25 MG TAB PO SCH (09:00)
[2019-04-16] MEDS ORDERED: CALCIUM PO SCH (09:00)
[2019-04-16] MEDS: VITAMIN E 400 UNIT CAP PO SCH (09:00)
[2019-04-16] MEDS ORDERED: NON-FORMULARY MEDICATION (Losartan/Hydrochlorothiazide (Losartan-Hctz 50-12.5 Mg Tab) 1 TA PO SCH (09:00)
[2019-04-16] MEDS: LOSARTAN POTASSIUM 100 MG TAB PO SCH (09:00)
[2019-04-16] MEDS ORDERED: OMEPRAZOLE 10 MG PO SCH (09:00)
[2019-04-16] MEDS: OYST-CAL-D 500MG TABLET PO SCH (09:00)
[2019-04-16] MEDS: LORATADINE 10 MG TAB PO SCH (09:00)
[2019-04-16] MEDS ORDERED: NON-FORMULARY MEDICATION (Levocetirizine Dihydrochloride 5 MG) PO SCH (09:00)
[2019-04-16 11:09] LABS: HYPOCHROMASIA MODERATE; LYMPHOCYTES % (MANUAL) 11 % (19-48); MONOCYTES % (MANUAL) 8 % (3.4-9.0); NEUTROPHILS % (MANUAL) 81 % (40-74); PLATELET ESTIMATE ADEQUATE; PLATELET MORPHOLOGY COMMENT NORMAL; RBC MORPHOLOGY COMMENT NORMAL
[2019-04-16 11:58] VITALS: BP 133/63
[2019-04-16] MEDS: CEFTRIAXONE SOD 1 GM/NS 50 ML 50 ML IV SCH (13:18)
[2019-04-16] MEDS ORDERED: SODIUM CHLORIDE 0.9% 250ML 250 ML ONE (13:20)
[2019-04-16 16:06] VITALS: BP 120/56
--- NOTE | 2019-04-16 16:22 | NUR ---
PT CHANGED TO INPT STATUS. MET W THE PT AND FAMILY AT THE BEDSIDE. EXPLAINED THE IMM LETTER. VERBALIZED UNDERSTANDING. IMM LETTER WAS SIGNED. COPY PLACE IN [facility] CHART AND COPY TO TRANSITIONAL CARE FOLDER FOR PT.
--- NOTE | 2019-04-16 17:28 | History and Physical ---
CHIEF COMPLAINT: Fevers and chills. HISTORY OF PRESENT ILLNESS: This is an 78-year-old female, believed to have urinary incontinence at home, who has been following up with a urologist, also has a history of hypertension and hyperlipidemia, who comes into the ED with complaint of underlying fevers and chills and generalized weakness that began since yesterday morning. The patient reports that she has had chronic urinary tract infections in the past. She has been following up with a urologist secondary to urinary incontinence based on her story. She reports that she does not like her urologist and is in the process of looking for another urologist. She presents to the ED due to this generalized weakness, fevers and chills. While here, the patient has temperature of 102.7 recorded and it seems like her urine culture is positive for gram-negative bacilli. The patient was evaluated, currently doing well with no other issues. Her vital signs are stable during my evaluation. REVIEW OF SYSTEMS: Pertinent positives: Fevers and chills and urinary incontinence. Pertinent negatives: Denies any chest pain, palpitation, nausea, vomiting, diarrhea, dysuria, hematuria, frequency, urgency, lightheadedness, dizziness, abdominal pain, headaches, shortness of breath, cough, congestion, or any other complaints. The rest of 14-point review of systems have been reviewed with the patient and are negative. ALLERGIES: DIGITALIS, MEPERIDINE, PHENOBARBITAL. HOME MEDICATIONS: Vitamin C 100 mg daily, gabapentin 600 mg t.i.d., levocetirizine 5 mg daily, losartan/hydrochlorothiazide 50/12.5 mg one tab p.o. daily, omeprazole 10 mg daily, pravastatin 40 mg at bedtime, thiamine 50 mg daily, vitamin D 400 units daily, infliximab as well. PAST MEDICAL HISTORY: She has hypertension, hyperlipidemia, and acid reflux. Also has history of osteoarthritis. PAST SURGICAL HISTORY: Reports none. FAMILY HISTORY: Hypertension and diabetes. SOCIAL HISTORY: No drugs. No alcohol. Does not smoke. Good social support. PHYSICAL EXAMINATION: VITAL SIGNS: Temperature is 98.3, pulse 72, respiratory rate is 20, blood pressure 129/61, and pulse ox 97% on room air. GENERAL: Not in acute distress. Alert and oriented x3. Cooperative on examination. HEENT: Head is normocephalic and atraumatic. Eyes; pupils are equal, round, and reactive to light bilaterally. Extraocular movements are intact bilaterally. Throat, no evidence of erythema or exudates in the posterior pharynx. Has poor dentition. NECK: Supple. Good range of motion. PULMONARY: Clear to auscultation bilaterally. No wheezing, no rales, no rhonchi, no crackles appreciated. CARDIOVASCULAR: Positive S1, S2. No murmurs, rubs, or gallops appreciated. ABDOMEN: Soft, nondistended, and nontender to palpation. Bowel sounds present. MUSCULOSKELETAL: Strength is 5/5 throughout. No evidence of any muscle deficits on examination. No weakness appreciated. NEUROLOGICAL: Cranial nerves 2 through 12 grossly intact. No evidence of any neurological deficits on exam. SKIN: Intact. Warm to touch. Good cap refill. PSYCHIATRIC: Normal affect and mood. EXTREMITIES: No edema. Good range of motion throughout. LABORATORY DATA: Lab findings shows white count was 12.2, hemoglobin 8.6, hematocrit is 26, platelets of 170. Coagulation; PT 13, INR 0.97, PTT 32. Chemistry; sodium 134, potassium 4.3, chloride 104, bicarb 23, anion gap of 9, BUN is 23, creatinine is 1.1, glucose 243. Lactic acid on admission was 20, which is elevated in the hospital and it then drops to 17, which is normal. Calcium 8.3. LFTs were normal. Troponin was negative. Albumin 2.8. Urinalysis looks to be negative. Her urine culture is positive for gram-negative bacilli. Blood cultures were pending. IMAGING STUDIES: Chest x-ray was negative. IMPRESSION: 1. Sepsis secondary to underlying urinary tract infection with leukocytosis, lactic acidosis likely secondary to urinary tract infection. 2. Urinary tract infection. 3. Concern for urinary incontinence. 4. Hypertension. 5. Hyperlipidemia. PLAN: At this time, the patient had a fever of 102.7 last night and is now ready for discharge. The patient is eager to being discharged. I talked to her very thoroughly with the family at bedside that she will likely be here for several more days as the urine culture is positive for gram-negative bacilli, we will monitor urine culture, blood cultures are pending, continue with IV antibiotics with Rocephin, which is scheduled. We are going to resume same antihypertensive medications as well. Repeat labs in the morning. Resume same home medications with no changes at this time. Put her on Lovenox for DVT prophylaxis. PT and OT eval and treat. Discussed plan of care with family at bedside as well as the patient and they verbalized understanding and agree with plan of care. MD VIVIANE Laughlin/MODL /[id number]
[2019-04-16] MEDS: ENOXAPARIN SOD INJ 40 MG/0.4 ML SYR SC SCH (17:49)
--- NOTE | 2019-04-16 18:30 | NUR ---
Pt in chair aox4. Denies any pain at this time. Pt is afebrile. IV to right hand started this afternoon and intact.
--- NOTE | 2019-04-16 19:07 | NUR ---
Received change of shift report from AM nurse. Walking rounds completed.
[2019-04-16 20:00] VITALS: BP_SYST 136; BP_SYST 146; BP_DIAS 65; BP_DIAS 81
[2019-04-16] MEDS: PRAVASTATIN 20 MG TAB PO SCH (20:29)
[2019-04-16] MEDS: MELATONIN 3 MG TAB PO SCH (20:29)
--- NOTE | 2019-04-16 21:06 | NUR ---
Patient was sitting up in chair. Denied pain or discomfort at this time. IV to right wrist HL. Patient requested tylenol for temp 100.4 med given. Patient returned to bed. Family at bedside.
--- NOTE | 2019-04-16 22:49 | NUR ---
Patient resting quitly at this time. Continue monitor.
[2019-04-17] VITALS (8 sets, daily range): BP systolic 117–157; BP diastolic 55–72
--- NOTE | 2019-04-17 00:17 | NUR ---
Report given to nurse.
--- NOTE | 2019-04-17 01:00 | NUR ---
RECEIVED PT IN BED AOX3 .NO ACUTE DISTRESS NOTED .PT RESTING .CALL LIGHT WITH IN REACH .CONTINUE TO MONITOR
[2019-04-17 05:17] LABS: BASOPHILS # (AUTO) 0.1 (0.0-0.1); BASOPHILS % 0.6 % (0.0-1.0); EOSINOPHILS # (AUTO) 0.1 (0.0-0.4); EOSINOPHILS % 0.6 % (0.0-6.0); HEMATOCRIT 28.2 % (34.2-44.1); LYMPHOCYTES # (AUTO) 1.4 (1.0-3.2); LYMPHOCYTES % 16.5 % (18.0-39.1); MEAN CORPUSCULAR HEMOGLOBIN 32.5 pg (28-32); MEAN CORPUSCULAR HGB CONC 31.9 g/dL (31-35); MEAN CORPUSCULAR VOLUME 101.8 fL (81-99); MONOCYTES # (AUTO) 1.4 (0.2-0.8); MONOCYTES % 15.8 % (4.4-11.3); NEUTROPHILS # (AUTO) 5.6 (2.1-6.9); NEUTROPHILS % 64.2 % (38.7-80.0); PLATELET COUNT 161 x10e3/uL (140-360); RED BLOOD COUNT 2.77 x10e6/uL (3.6-5.1); RED CELL DISTRIBUTION WIDTH 13.3 % (11.7-14.4)
[2019-04-17 05:35] LABS: ALBUMIN 2.7 g/dL (3.5-5.0); ALBUMIN/GLOBULIN RATIO 0.8 (0.8-2.0); ANION GAP 11.6 mmol/L (8-16); CALCIUM 8.9 mg/dL (8.4-10.2); CREATININE, SERUM 1.29 mg/dL (0.57-1.11); POTASSIUM 4.6 mmol/L (3.5-5.1)
--- NOTE | 2019-04-17 06:29 | NUR ---
PT RESTED DURING THE NIGHT .DENIES PAIN .FAMILY AT THE BEDSIDE .CALL LIGHT WITH IN REACH .CONTINUE TO MONITOR
--- NOTE | 2019-04-17 07:09 | NUR ---
REPORT GIVEN TO THE ONCOMING NURSE.
[2019-04-17] MEDS: PANTOPRAZOLE SOD 40 MG TABEC PO SCH (08:43)
[2019-04-17] MEDS: GABAPENTIN 300 MG CAP PO SCH ×2 (08:44→20:00)
[2019-04-17] MEDS: LOSARTAN POTASSIUM 100 MG TAB PO SCH (08:44)
[2019-04-17] MEDS: LORATADINE 10 MG TAB PO SCH (08:44)
[2019-04-17] MEDS: HYDROCHLOROTHIAZIDE 25 MG TAB PO SCH (08:45)
[2019-04-17] MEDS: VITAMIN E 400 UNIT CAP PO SCH (08:45)
[2019-04-17] MEDS: MAGNESIUM OXIDE 400 MG TAB PO SCH (08:45)
[2019-04-17] MEDS: OYST-CAL-D 500MG TABLET PO SCH (08:45)
[2019-04-17] MEDS: CEFTRIAXONE SOD 1 GM/NS 50 ML 50 ML IV SCH (13:36)
--- NOTE | 2019-04-17 15:27 | Progress Note ---
DATE: 04/17/2019 Medicine Progress Note SUBJECTIVE: The patient is doing much better today. She is sitting at the chair at the bedside, eating her lunch. She is doing much better. Her temperature is 98.7. She had a T-max of 99.9 last night. She has no more fevers or chills. She is improving tremendously. LAB FINDINGS: Show white count is 8.7, hemoglobin was 9, hematocrit is 28, and platelets of 161. Coagulations were normal. Chemistry; sodium 133, potassium 4.6, chloride 102, bicarb 27, anion gap of 11, BUN is , creatinine 1.29, glucose is 119, calcium is 8.9. LFTs within normal range. Albumin 2.7. Her troponins were all negative. Microbiology, urine culture was positive for E coli and it is sensitive to cephalosporins. Blood cultures were no growth to date. OBJECTIVE: VITAL SIGNS: Temperature is 98.7. She had a T-max of 100.4 as of last night. Blood pressure is 117/55, pulse ox 96% on room air. GENERAL: Not in acute distress. Alert, oriented x3. Cooperative on examination. HEENT: Head is normocephalic and atraumatic. Eyes; pupils are equal, round, and reactive to light bilaterally. Extraocular movements are intact bilaterally. Extraocular muscles intact. NECK: Supple. Good range of motion throughout. Throat, no evidence of erythema or exudates in the posterior pharynx. . PULMONARY: bilaterally. No wheezing, no rales, no rhonchi, no crackles appreciated. CARDIOVASCULAR: Positive S1, S2. No murmurs, rubs, or gallops. GI: Abdomen is soft, nondistended, and nontender to palpation. Bowel sounds present. MUSCULOSKELETAL: Strength is 5/5 throughout. No evidence of any muscle deficits on examination. No weakness appreciated. NEUROLOGICAL: Cranial nerves II through XII grossly intact. No evidence of any neurological deficits on exam. SKIN: Intact. Warm to touch. Good cap refill. PSYCHIATRIC: Normal affect and mood. EXTREMITIES: No edema. Good range of motion throughout. IMPRESSION: 1. Sepsis secondary to underlying urinary tract infection, leukocytosis, lactic acidosis, now improving. 2. Urinary tract infection, now E coli, positive. 3. Concerns for urinary incontinence. 4. Hypertension. 5. Hyperlipidemia. 6. Fevers and chills resolved. PLAN: At this time, she had a T-max of 100.4, so she is not ready to be discharged today. Her urine culture was positive for E coli, sensitive to cephalosporins. Blood culture showed no growth. Otherwise, the rest of her labs are within normal range. Electrolytes were stable. We will continue with IV antibiotics. Continue same plan of care. PT and OT daily with Lovenox for DVT prophylaxis. The patient will likely be discharged home tomorrow. I discussed this with the patient and the family at bedside. MD VIVIANE Laughlin/TEODORA /[id number]
[2019-04-17] MEDS: ENOXAPARIN SOD INJ 40 MG/0.4 ML SYR SC SCH (17:26)
--- NOTE | 2019-04-17 18:30 | NUR ---
Pt ambulating in hallway. Aox4 and able to verbalize needs. Pt denies any pain at this time. Pt continues to be afebrile.
--- NOTE | 2019-04-17 19:16 | NUR ---
Received change of shift report from AM nurse. Rounds completed.
--- NOTE | 2019-04-17 19:45 | NUR ---
Patient walking up and down hallway with no difficulty noted. Walking with daughter no assistance need. Steady gait. No c/o pain at this time.
[2019-04-17] MEDS: PRAVASTATIN 20 MG TAB PO SCH (20:50)
[2019-04-17] MEDS: MELATONIN 3 MG TAB PO SCH (20:50)
[2019-04-18] VITALS: BP 95/49
--- NOTE | 2019-04-18 | NUR ---
Patient HR ranging from 110 -130. MD called to inform of MD Dr Le. Patient placed on tele. #6 shows A-FIB. Will inform .
[2019-04-18 04:00] VITALS: BP 137/66
[2019-04-18 05:58] LABS: BASOPHILS # (AUTO) 0.1 (0.0-0.1); BASOPHILS % 0.8 % (0.0-1.0); EOSINOPHILS # (AUTO) 0.1 (0.0-0.4); EOSINOPHILS % 0.8 % (0.0-6.0); HEMOGLOBIN 9.2 g/dL (12.0-16.0); LYMPHOCYTES # (AUTO) 1.3 (1.0-3.2); LYMPHOCYTES % 17.9 % (18.0-39.1); MEAN CORPUSCULAR HEMOGLOBIN 32.6 pg (28-32); MEAN CORPUSCULAR HGB CONC 32.9 g/dL (31-35); MEAN CORPUSCULAR VOLUME 99.3 fL (81-99); MONOCYTES # (AUTO) 1.1 (0.2-0.8); MONOCYTES % 16.1 % (4.4-11.3); NEUTROPHILS # (AUTO) 4.3 (2.1-6.9); NEUTROPHILS % 60.9 % (38.7-80.0); PLATELET COUNT 200 x10e3/uL (140-360); RED BLOOD COUNT 2.82 x10e6/uL (3.6-5.1); RED CELL DISTRIBUTION WIDTH 13.2 % (11.7-14.4)
--- NOTE | 2019-04-18 06:35 | NUR ---
Patient resting quitly at this time.
[2019-04-18 06:43] LABS: ANION GAP 13.1 mmol/L (8-16); CALCIUM 8.9 mg/dL (8.4-10.2); CREATININE, SERUM 1.15 mg/dL (0.57-1.11); POTASSIUM 4.1 mmol/L (3.5-5.1)
[2019-04-18 06:56] LABS: BAND NEUTROPHILS % (MANUAL) 1 %; EOSINOPHILS % (MANUAL) 2 % (0-7); LYMPHOCYTES % (MANUAL) 9 % (19-48); METAMYELOCYTES % (MANUAL) 1 % (0-0); MONOCYTES % (MANUAL) 12 % (3.4-9.0); NEUTROPHILS % (MANUAL) 75 % (40-74); PLATELET ESTIMATE ADEQUATE; PLATELET MORPHOLOGY COMMENT NORMAL; RBC MORPHOLOGY COMMENT NORMAL
[2019-04-18 07:54] VITALS: BP 124/66
[2019-04-18 08:00] VITALS: BP 124/66
--- NOTE | 2019-04-18 08:00 | NUR ---
Pt in bed aox4 and able to verbalize needs. Pt denies any chest pain at this time. Denies SOB. Dr. Herrera has been notified of new consult and will be here this morning. EKG in process of being done.
[2019-04-18] MEDS: PANTOPRAZOLE SOD 40 MG TABEC PO SCH (09:13)
[2019-04-18] MEDS: GABAPENTIN 300 MG CAP PO SCH (09:13)
[2019-04-18] MEDS: LORATADINE 10 MG TAB PO SCH (09:13)
[2019-04-18] MEDS: HYDROCHLOROTHIAZIDE 25 MG TAB PO SCH (09:13)
[2019-04-18] MEDS: VITAMIN E 400 UNIT CAP PO SCH (09:14)
[2019-04-18] MEDS: MAGNESIUM OXIDE 400 MG TAB PO SCH (09:14)
[2019-04-18] MEDS: LOSARTAN POTASSIUM 100 MG TAB PO SCH (09:14)
[2019-04-18] MEDS: OYST-CAL-D 500MG TABLET PO SCH (09:14)
[2019-04-18 11:19] LABS: CHOL/HDL RATIO 2.8 (3.0-3.6)
[2019-04-18 11:39] LABS: THYROID STIMULATING HORMONE 1.024 uIU/mL (0.350-4.940)
[2019-04-18 11:56] VITALS: BP 124/60
[2019-04-18] MEDS: CEFTRIAXONE SOD 1 GM/NS 50 ML 50 ML IV SCH (12:39)
[2019-04-18] MEDS ORDERED: AMIODARONE HCL 200 MG TAB PO SCH (12:45)
--- NOTE | 2019-04-18 13:55 | NUR ---
Pt discharged at this time. Dr. Herrera was here to see pt. Pt converted to SR at this time. Physician left prescriptions for pt. Dr. Le here to see pt and discharged pt and left prescriptions fro antibiotics. Pt denies any pain at this time. Denies any chest pain .
--- NOTE | 2019-04-18 17:17 | Consultation ---
DATE OF CONSULTATION: 04/18/2019 Cardiology Consultation REASON FOR CONSULTATION: Atrial fibrillation. HISTORY OF PRESENT ILLNESS: Ms. Michaels is an 78-year-old female with past medical history of hypertension, hyperlipidemia, rheumatoid and psoriatic arthritis on intermittent effusion therapy, who presented to this institution with fevers, chills, rigors and was noted to have severe sepsis related to E coli and urosepsis. The patient was treated with IV antibiotic therapy and locally has made a good recovery. Most recently, her white count has normalized. However, overnight the patient had her vitals checked and on check, she was noted to have tachycardia. She was placed on telemetry monitoring where she was noted to be in atrial fibrillation with rapid ventricular response. However, she went back into normal sinus rhythm this morning. The patient reports that she denied any subjective palpitations. She denies any dizziness, lightheadedness, syncope or near syncope. She denies any shortness of breath, cough and feels more less normal and eager to go home. We had a long discussion with the patient in terms of what atrial fibrillation is and in terms of different management strategies including rate rhythm control, anticoagulant therapy, etc. The patient does report a longstanding history of anemia and has a severe bleeding tendency and expresses severe reservation for systemic anticoagulant at this time and wishes to think about it. She is familiar with the medication as her is on anticoagulant therapy as he has atrial fibrillation, however for her she does not quite feel comfortable with that as she bleeds very easily. She is to seriously think about it in the meantime, we will still consider 81 mg of aspirin for at least some protection. PAST MEDICAL HISTORY: 1. History of rheumatoid and psoriatic arthritis. 2. Hypertension, essential. 3. Hypercholesteremia. 4. Megaloblastic anemia. 5. Vitamin D deficiency. 6. Remote history of seizure disorder back in her mid 30s and is off all medication. PAST SURGICAL HISTORY: 1. History of bilateral knee replacement operation. 2. History of right shoulder replacement surgery. 3. History of C-spine and neck fusion. 4. History of bilateral cataract surgery. 5. History of left wrist surgery. 6. History of hysterectomy. 7. History of appendectomy. 8. History of tonsillectomy. FAMILY HISTORY: Mother at 82. Had congestive heart failure and had an aortic valve replacement. Father in his 40s of unknown cause. One brother , had AVR at a young age and a nephew, who had an AVR at young age. SOCIAL HISTORY: She is a lifelong nonsmoker. Denies any alcohol or illicit drug use. ALLERGIES: INCLUDE DEMEROL, PHENOBARBITAL, AND DIGITALIS. HOME MEDICATIONS: Include; vitamin C, vitamin D supplement daily, gabapentin 600 mg t.i.d., Remicade infusions, intermittent, cetirizine 5 mg daily, losartan/HCTZ 50/12.5 mg daily, omeprazole 10 mg daily, pravastatin 40 mg daily, thiamine 50 mg daily, vitamin D tablet, calcium supplement, and magnesium supplement. REVIEW OF SYSTEMS: GENERAL: Denies any current fevers or chills. No weight changes. HEENT: No headaches, visual complaints, sore throat or stuffy nose. RESPIRATORY: Denies any pleuritic chest pain. Had some shortness of breath with her initial presentation of sepsis, but this is largely resolved. Denies any coughing or wheezing. CARDIOVASCULAR: Despite the atrial fibrillation, patient denies any subjective palpitations. No orthopnea, PND, chest pain or discomfort. No syncope or near syncope history. GI: Denies any abdominal pain, bright red blood per rectum, melena, hematemesis, nausea, or vomiting. : Positive for urinary frequency, pyuria and dysuria as part of her presenting symptom. MUSCULOSKELETAL: Positive for severe rheumatoid arthritic type pains in her hands and joints. SKIN: No rashes or breakdowns. NEUROLOGIC: Denies any focal weakness, numbness, recent seizures, history of TIA or stroke. PSYCH: No anxiety or depression. Remainder of review of systems negative, otherwise as mentioned. PHYSICAL EXAMINATION: VITAL SIGNS: Height of 65 inches, weight of 205 pounds, BMI is 34.2, temperature of 97.6, pulse of 86, respiratory rate of 20, blood pressure 124/66, 97% on room air. GENERAL: This is a well-nourished, well-developed lady, who is currently in no apparent distress. HEENT: Normocephalic, atraumatic. Pupils are equal, round, and reactive to light. Extraocular movements are intact. Oropharynx is clear. NECK: No elevation of jugular venous pulsation. No carotid bruits. CARDIOVASCULAR: Regular rate and rhythm. Normal S1, S2. No gallops, murmurs. LUNGS: Clear to auscultation bilaterally with good air entry. ABDOMEN: Soft, nontender, nondistended. Normoactive bowel sounds. No hepatosplenomegaly. There is an old midline infraumbilical scar. BACK: No costovertebral angle tenderness. EXTREMITIES: Warm with 2+ bilateral radial pulses, 1+ femoral pulses, 1+ pedal pulses. There is bilateral total knee replacement scars and scar in her right shoulder. NEUROLOGIC: Cranial nerves II through XII were intact. Strength 5/5 grossly nonfocal. Normal gait. PSYCH: Normal fluent speech. Appropriate affect. No anxiety or delusions. LABORATORY DATA: White count of 7, hemoglobin 9.2, hematocrit of 28.0, platelets of 200, MCV is 99. Sodium 134, potassium 4.1, chloride 102, bicarb 23, BUN 23, creatinine 1.15, glucose of 113, calcium of 8.9. LFTs reviewed from April 17, which revealed AST 20, ALT 33, total protein of 5.9, and albumin of 2.7. Troponin was checked earlier on were negative x3. BNP checked early this admission which was normal at 66. EKG reviewed revealing normal sinus rhythm, normal axis, no ST-T wave changes. Chest x-ray from April 15 shows no acute abnormalities. DIAGNOSES: 1. Paroxysmal atrial fibrillation, likely has it off and on and incidentally found here in the hospital, largely minimally symptomatic. 2. Sepsis, urinary tract infection/maybe early pyelonephritis, clinically markedly improved. 3. Hypertension, essential. 4. Hypercholesteremia. 5. History of rheumatoid and psoriatic arthritis, on Remicade therapy. 6. Megaloblastic anemia. 7. Subjective history of bleeding tendency. 8. Family history of premature aortic valve stenosis with subsequent need for early replacement therapy. PLAN AND RECOMMENDATIONS: 1. From a cardiovascular standpoint, the patient is currently in normal sinus rhythm. We had a long discussion in terms of the meaning of atrial fibrillation as well as the natural history and typical course. Suspect, the patient is paroxysmal with risk factors being her recent sepsis, age, inflammatory condition as well as her risk factors. Nonetheless, the patient qualifies for systemic anticoagulation therapy based on her CHADS-VASc score. However, patient at this time is not willing to take this medication and we will continue to work with convincing her. In the meantime, she is agreeable to consider taking aspirin as thromboembolic prophylaxis. 2. We will implement a rhythm control strategy to minimize her burden of atrial fibrillation and I have started her on amiodarone daily. 3. We will go ahead and check her thyroid function tests in addition to checking lipid profile and A1c. 4. From a cardiovascular standpoint, we do not need to necessarily keep this patient here. She is already stable for discharge. We have given her information to follow up with us as an outpatient in our clinic. 5. We will go ahead and evaluate her perhaps with an echo and Holter in the future. Thank you for this referral. MD LOIS Ryan/TEODORA /[id number]
--- NOTE | 2019-04-19 04:49 | Discharge Summary ---
FINAL DISCHARGE DIAGNOSES: 1. Sepsis secondary to underlying urinary tract infection with leukocytosis, now resolved. 2. Urinary tract infection, Escherichia coli, resolving. 3. History of urinary incontinence. 4. Hypertension. 5. Hyperlipidemia. 6. Fevers and chills, resolved. 7. Atrial fibrillation, paroxysmal. CONSULTANTS: Cardiology. PHYSICAL EXAMINATION: VITAL SIGNS: Temperature is 97.6, pulse of 96, respiratory rate is 20, blood pressure 174/60, pulse ox 96% on room air. LABORATORY FINDINGS: Show white count was 7, hemoglobin 9.2, hematocrit 28, platelets of 200. Coagulation, PT 13, INR 0.97, PTT 32. Chemistry, sodium 134, potassium 4.1, chloride 107, bicarb 23, anion gap of 13, BUN is 23, creatinine 0.1, glucose 113, calcium 8.9. LFTs were normal. Albumin 2.7. A1c pending. Lipid panel pending. Urinalysis concerning for UTI. Blood cultures were negative, greater than 48 hours x2. Urine culture was positive for E. coli and sensitive to Rocephin, which she will be discharged on oral Omnicef to complete 14 total days. IMAGING STUDIES: Chest x-ray was negative. HOSPITAL COURSE: This is an 78-year-old female, who came into the ED with complaints of fevers and chills and was treated for underlying urinary tract infection. The patient was treated for underlying sepsis due to mild elevation of lactic acidosis and white count. The patient maintained on broad-spectrum IV antibiotics. Blood and urine cultures were collected. Urine culture was positive for E. coli, which was sensitive to cephalosporins. She will be discharged on oral Omnicef for 2 total weeks upon discharge. Her blood cultures were negative. The patient improved. Her white count was normal. She was afebrile. No evidence of fevers and chills. Tolerating diet with no complaints. She did develop atrial fibrillation paroxysmally on 04/18/2019 early in the morning, requiring Cardiology consultation. At this time per Cardiology, they recommended oral amiodarone for discharge. She is currently normal sinus rhythm with normal heart rate and to follow up as an outpatient in their office in the next one week for discussion for anticoagulation. The patient reports that she has a history of bleeding in the past and that she was told not to take anticoagulation, so at this time, she will be discharged with no anticoagulation. She will need to follow up with Cardiology as per their recommendations. She will be discharged on oral amiodarone. We did discuss with her about the importance of taking at least a baby aspirin for discharge. On discharge, the patient was doing well back to normal baseline with no other complaints. She was cleared for discharge by Cardiology. On the day of discharge, vital signs stable, labs reviewed and stable. The patient has been evaluated and examined thoroughly on the day of discharge. No other complaints. The patient verbalized understanding and agrees to plan of care to follow up accordingly as an outpatient with primary care physician in 1 week and the project facilitator in the next one week in their office. MEDICATIONS: See med reconciliation form, including Omnicef 300 mg capsules one tab p.o. b.i.d. x12 more days, also amiodarone 200 mg daily, also aspirin 81 mg daily. DISPOSITION: Home. CONDITION: Stable. DIET: Heart healthy. In the event of any worsening symptoms, the patient has come back to the ED for further evaluation. Discharge summary took greater than 35 minutes. MD VIVIANE Laughlin/TEODORA /[id number]
== END 2019-04-18 13:58 | disposition home or self-care (01) | DRG 872 ==
LOC: ER 11:30 → ERHOLD 13:38 → OBSVTOIN 13:38 → MED/SURG3 18:18
PROVIDERS: ADMIT Internal Medicine; ATTEND Internal Medicine
DX: A41.9 Sepsis, unspecified organism (principal); N39.0 Urinary tract infection, site not specified; I48.0 Paroxysmal atrial fibrillation; I10 Essential (primary) hypertension; E78.5 Hyperlipidemia, unspecified; R32 Unspecified urinary incontinence; M06.9 Rheumatoid arthritis, unspecified; L40.50 Arthropathic psoriasis, unspecified; E55.9 Vitamin D deficiency, unspecified; D53.1 Other megaloblastic anemias, not elsewhere classified; Z88.8 Allergy status to other drugs, medicaments and biological substances; Z96.653 Presence of artificial knee joint, bilateral; Z96.611 Presence of right artificial shoulder joint; Z82.49 Family history of ischemic heart disease and other diseases of the circulatory system
CPT/HCPCS: 36415; 71046; 80048; 80053; 80061; 81001; 82550; 82553; 83036; 83605; 83880; 84443; 84484; 85025; 85610; 85730; 87040; 87086; 87186; 93005; 99284; J0696; J1650; J7030; J7050

== ENCOUNTER 2021-03-06 12:41 | Emergency (ER) | payer BC, MEDICARE ==
[~2021-03-06] VITALS: Ht 167.6 cm; Wt 83.9 kg
[~2021-03-06 12:41] MED LIST: ACETAMINOPHEN325 M1 PO; Calcium PO; GABAPENTIN300 MG PO; LEVOCETIRIZINE D5 MG PO; LOSARTAN-HCTZ1 EACH PO; Magnesium PO; OMEPRAZOLE10 MG PO; PRAVASTATIN SOD40 MG PO; REMICADE100 MG/VIA; VITAMIN B-150 MG PO; VITAMIN C100 MG PO; VITAMIN D250000 UNIT PO; VITAMIN E400 UNI1 PO
== END 2021-03-06 13:30 | disposition home or self-care (01) ==
LOC: ER 12:59
DX: R05 Cough (principal); R53.1 Weakness; I10 Essential (primary) hypertension; G40.909 Epilepsy, unspecified, not intractable, without status epilepticus; J45.909 Unspecified asthma, uncomplicated; K21.9 Gastro-esophageal reflux disease without esophagitis
CPT/HCPCS: 99282